=== PATIENT | female | born 1985 | race Caucasian/White ===

== ENCOUNTER → 2017-12-06 | Outpatient (REF) | payer BC ==
[2017-12-06 11:56] LABS: HEMATOCRIT 41.6 % (36.0-47.0); HEMOGLOBIN 13.4 g/dl (12.0-16.0); MEAN CORPUSCULAR HEMOGLOBIN 26.5 pg (27.0-33.0); MEAN CORPUSCULAR HGB CONC 32.2 g/dl (32.0-36.5); MEAN CORPUSCULAR VOLUME 82.4 fl (80.0-96.0); PLATELET COUNT, AUTOMATED 272 10^3/uL (150-450); RED BLOOD COUNT 5.05 10^6/uL (4.00-5.40)
[2017-12-06 12:14] LABS: ESTIMATED AVERAGE GLUCOSE 128 MG/DL (60-110); HEMOGLOBIN A1c 6.1 %
[2017-12-06 12:25] LABS: ALBUMIN 3.5 GM/DL (3.2-5.2); ALBUMIN/GLOBULIN RATIO 0.88 (1.00-1.93); ALKALINE PHOSPHATASE 50 U/L (45-117); ALT/SGPT 25 U/L (12-78); ANION GAP 8 MEQ/L (8-16); AST/SGOT 17 U/L (7-37); BILIRUBIN,TOTAL 0.5 MG/DL (0.2-1.0); BLOOD UREA NITROGEN 14 MG/DL (7-18); CALCIUM LEVEL 8.7 MG/DL (8.5-10.1); CARBON DIOXIDE LEVEL 28 MEQ/L (21-32); CHLORIDE LEVEL 104 MEQ/L (98-107); CHOLESTEROL LEVEL 250 MG/DL (<200); CHOLESTEROL RISK RATIO 4.098 (<5); CREATININE FOR GFR 0.56 MG/DL (0.55-1.30); GLOMERULAR FILTRATION RATE > 60.0 (>60); GLUCOSE, FASTING 88 MG/DL (70-100); HDL CHOLESTEROL 61 MG/DL (>40); LDL CHOLESTEROL 157.8 MG/DL (<100); NON-HDL-C 189 MG/DL; POTASSIUM SERUM 3.9 MEQ/L (3.5-5.1); SODIUM LEVEL 140 MEQ/L (136-145); TOTAL PROTEIN 7.5 GM/DL (6.4-8.2); TRIGLYCERIDES LEVEL 156 MG/DL (<150)
== END ==
LOC: M SFHCPLAZ 10:19
DX: Z00.00 Encounter for general adult medical examination without abnormal findings (principal)

== ENCOUNTER → 2019-03-09 | Outpatient (REF) | payer BC | LOC: M SFHCLERA 19:07 | PROVIDERS: ATTEND Nurse Practitioner Family | DX: J02.9 Acute pharyngitis, unspecified (principal) ==

== ENCOUNTER → 2020-05-29 | Outpatient (REF) | payer BC ==
[~2020-05-29] MED LIST: BUSP10TA PO; COLA1TAB PO; ESCI20TA PO; MELO7.5T35 PO; METF-838 PO; MULTCAP PO; NAPR220C23 PO; OMEP-221 PO; PERC5TAB12 PO; PREG25CA2 PO; TIZA4TAB4 PO; TOPI50TA9 PO; TRAM50TA2 PO
[2020-05-29 14:12] LABS: HEMOGLOBIN A1c 5.7 %
[2020-05-29 14:15] LABS: ALBUMIN 3.7 GM/DL (3.2-5.2); ALT/SGPT 20 U/L (12-78); BILIRUBIN,TOTAL 0.6 MG/DL (0.2-1.0); BLOOD UREA NITROGEN 17 MG/DL (7-18); CALCIUM LEVEL 9.3 MG/DL (8.5-10.1); CARBON DIOXIDE LEVEL 27 MEQ/L (21-32); CHLORIDE LEVEL 107 MEQ/L (98-107); CREATININE FOR GFR 0.79 MG/DL (0.55-1.30); GLOMERULAR FILTRATION RATE > 60.0 (>60); GLUCOSE, FASTING 84 MG/DL (70-100); POTASSIUM SERUM 4.7 MEQ/L (3.5-5.1); SODIUM LEVEL 140 MEQ/L (136-145); TOTAL PROTEIN 7.6 GM/DL (6.4-8.2)
== END ==
LOC: M SFHCPLAZ 11:57
PROVIDERS: ATTEND Nurse Practitioner Adult Health
DX: E74.39 Other disorders of intestinal carbohydrate absorption (principal); F41.9 Anxiety disorder, unspecified

== ENCOUNTER → 2020-07-05 | Outpatient (CLI) | payer BC | LOC: M LABSMTC 10:07 | PROVIDERS: ATTEND Anesthesiology | DX: Z01.818 Encounter for other preprocedural examination (principal); Z11.59 Encounter for screening for other viral diseases | CPT/HCPCS: C9803; U0003 ==

== ENCOUNTER → 2020-07-09 | Outpatient (CLI) | payer BC ==
[2020-07-09 10:17] LABS: BLOOD UREA NITROGEN 18 MG/DL (7-18); CALCIUM LEVEL 8.9 MG/DL (8.5-10.1); CARBON DIOXIDE LEVEL 22 MEQ/L (21-32); CHLORIDE LEVEL 110 MEQ/L (98-107); CREATININE FOR GFR 0.71 MG/DL (0.55-1.30); GLOMERULAR FILTRATION RATE > 60.0 (>60); GLUCOSE, FASTING 99 MG/DL (70-100); POTASSIUM SERUM 4.3 MEQ/L (3.5-5.1); SODIUM LEVEL 141 MEQ/L (136-145)
--- NOTE | 2020-07-30 10:53 | ECGEPIP ---
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
== END ==
LOC: M LAB 09:09
PROVIDERS: ATTEND Anesthesiology
DX: Z01.818 Encounter for other preprocedural examination (principal)

== ENCOUNTER 2020-07-10 06:29 | Day surgery (SDC) | payer BC ==
[2020-07-10] VITALS (7 sets, daily range): BP systolic 102–112; BP diastolic 62–67
[~2020-07-10] VITALS: Ht 162.6 cm; Wt 97.5 kg
[~2020-07-10 06:29] MED LIST changes: -COLA1TAB PO; -PERC5TAB12 PO; -TRAM50TA2 PO
[2020-07-10] MEDS ORDERED: CelecoXIB 400 MG CAP PO ONE (06:45)
[2020-07-10] MEDS ORDERED: GABAPENTIN 300 MG CAP PO ONE (06:45)
[2020-07-10] MEDS ORDERED: PERCOCET 5MG/325MG TAB PO ONE (06:45)
[2020-07-10] MEDS ORDERED: ceFAZolin SOD 2 GM in IV 1 EA IV ONE ×2 (06:45→12:00)
[2020-07-10] MEDS ORDERED: LR 1,000 ML IV SCH ×3 (06:45→10:30)
[2020-07-10] MEDS ORDERED: propofoL 200 MG/20 ML VIAL As Ordered ONE (07:14)
[2020-07-10] MEDS ORDERED: LIDOCAINE 2% 100MG/5ML SDV (FOR ANES.) As Ordered ONE (07:14)
[2020-07-10] MEDS ORDERED: MIDAZOLAM INJ 2MG/2ML VIAL (J2250 PER 1MG) As Ordered ONE (07:14)
[2020-07-10] MEDS ORDERED: fentaNYL 100 MCG/2 ML INJECTION (J3010) As Ordered ONE ×2 (07:14→08:10)
[2020-07-10] MEDS ORDERED: dexameTHASONE 4 MG/ML 1ML VIAL (J1100 PER 1MG) As Ordered ONE (07:15)
[2020-07-10] MEDS ORDERED: ONDANSETRON 4MG/2ML VIAL As Ordered ONE (07:15)
[2020-07-10] MEDS ORDERED: ROCURONIUM BROMIDE 50 MG/5 ML VIAL As Ordered ONE ×2 (07:17→08:16)
[2020-07-10] MEDS ORDERED: LACRILUBE (AKWA TEARS) OPHTH OINT 3.5 GM As Ordered ONE (07:21)
[2020-07-10] MEDS ORDERED: BUPIVACAINE/EPIN 0.25% 30 ML VIAL As Ordered ONE (07:45)
[2020-07-10] MEDS ORDERED: BUPIVACAINE HCL 0.25% 10ML VIAL As Ordered ONE (07:45)
[2020-07-10] MEDS ORDERED: THROMBIN SOLN 20,000 UNITS KIT As Ordered ONE (07:45)
[2020-07-10] MEDS ORDERED: TRANEXAMIC ACID 100 MG/ML 10ML VIAL As Ordered ONE (07:45)
[2020-07-10] MEDS ORDERED: BACITRACIN PWD 50,000 UNITS VIAL As Ordered ONE (07:46)
[2020-07-10] MEDS ORDERED: BUPIVACAINE LIPOSOME/PF 1.3% 20ML VIAL (13.3MG/ML)(EXPAREL)(C9290 PER1MG) As Ordered ONE (07:46)
[2020-07-10] MEDS ORDERED: EPINEPHrine INJ 1 MG/ML 1ML AMP As Ordered ONE (07:46)
[2020-07-10] MEDS ORDERED: SUGAMMADEX SODIUM 500 MG/5 ML VIAL (BRIDION) As Ordered ONE (08:12)
[2020-07-10] MEDS ORDERED: KETAMINE HCL 200 MG/20 ML VIAL As Ordered ONE (09:00)
[2020-07-10] MEDS: METAMUCIL (PSYLLIUM) PACKET PO SCH (09:00)
[2020-07-10] MEDS ORDERED: GLYCOPYRROLATE INJ 0.2 MG/ML 2 ML VIAL As Ordered ONE (09:22)
[2020-07-10] MEDS ORDERED: ALBUTEROL 6.7GM INHALER **FOR ANES. CART/OMNICELL ONLY As Ordered ONE (09:42)
[2020-07-10] MEDS ORDERED: MORPHINE 4 MG/ML 1ML VIAL/SYRINGE (J2270) IV PRN (10:30)
[2020-07-10] MEDS ORDERED: fentaNYL 100 MCG/2 ML INJECTION (J3010) IV PRN (10:30)
[2020-07-10] MEDS ORDERED: METOCLOPRAMIDE INJ 10MG/2ML VIAL (J2765 PER 1) IV PRN (10:30)
[2020-07-10] MEDS ORDERED: ONDANSETRON 4MG/2ML VIAL IV PRN (10:30)
[2020-07-10] MEDS ORDERED: PERCOCET 5MG/325MG TAB PO PRN (10:30)
[2020-07-10] MEDS: PERCOCET 5MG/325MG TAB PO PRN ×3 (10:38→18:43)
[2020-07-10] MEDS ORDERED: PROMETHAZINE INJ 25 MG/ML VIAL (J2550) IV PRN (10:45)
[2020-07-11] MEDS: PERCOCET 5MG/325MG TAB PO PRN ×4 (00:03→11:44)
[2020-07-11 00:30] VITALS: BP 111/68
[2020-07-11 04:30] VITALS: BP 121/64
[2020-07-11] MEDS ORDERED: PERC5TAB12 PO (06:20)
[2020-07-11] MEDS: METAMUCIL (PSYLLIUM) PACKET PO SCH (08:10)
[2020-07-11] MEDS ORDERED: traMADol 50 MG TAB As Ordered ONE (08:14)
[2020-07-11] MEDS ORDERED: KETOROLAC 30 MG/ML 1ML VIAL IV ONE (08:15)
[2020-07-11] MEDS ORDERED: traMADol 50 MG TAB PO ONE (08:15)
[2020-07-11] MEDS ORDERED: TRAM50TA2 PO (08:23)
[2020-07-11] MEDS ORDERED: COLA1TAB PO (08:23)
[2020-07-11] MEDS ORDERED: CelecoXIB (CeleBREX) 100 MG CAP PO ONE (09:00)
[2020-07-11 10:00] VITALS: BP 119/66
[2020-07-11] MEDS ORDERED: tiZANidine 4 MG TAB PO ONE (12:00)
[2020-07-11] MEDS ORDERED: TOPIRAMATE (TopAMAX) 25 MG TAB PO ONE (12:00)
--- NOTE | 2020-08-01 15:16 | RO ---
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 POSTOPERATIVE DIAGNOSIS: Left paracentral disk herniation at L3-4, transitional lumbosacral anatomy. PROCEDURE: Left L3-4 laminectomy with microdiskectomy. SURGEON: Donavon Blair MD ASSISSTING: LAZARUS Ramirez ANESTHESIA: General. ESTIMATED BLOOD LOSS: Less than 60 ml REPLACEMENT: Crystalloid. COMPLICATIONS: None. 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 MRI evidence of disk herniation left L3-4. Again because of the transitional anatomy, this would typically appear to be at the 4 or 5 level functionally, this appears to be what normally would be considered 4-5. Consent reviewed in detail including a victorino discussion of the pathology involved, the procedure proposed, alternatives including doing nothing, and this including but not limited to pain, failure, incomplete relief, need more surgery and other issues. The patient agrees to proceed. OPERATIVE COURSE: Identified in the holding area, site and side verified, brought to the operating room, anesthesia was administered. She was positioned on the Alan frame for exposure of the lumbar spine, prepped and draped in the usual fashion. Next, incision was outlined with a marking pen, infiltrated with 4% Marcaine with epinephrine. Incision was made with a 10 blade knife developed down through skin, subcuticular tissues. The dissection continued to the left of the midline to the paraspinal muscles and posterior fascia. The posterior fascia was reflected off the spinous process of 3 and 4. Dissection continued down to the 3-4 interspace. A divot was drilled at the 3-4 interspace and a across table lateral was taken to verify location; again, considering the patient only has one discrete vertebrae. Next, once we verified level, the Loupe magnification was removed. The operating microscope was brought in, sterilely draped. We utilized the high-speed bur to implement a left unilateral laminectomy at L3-4. Mr. Mcmanus looked through oculars on the right; I through oculars on the left. I utilized the bur to dissect to the bare area of 3 and inferiorly into top of 4, elevated using a curve curette, removed ligamentum flavum and exposed the thecal sac. Bipolar cautery was utilized for hemostasis. I sweep the nerve root traversing medially, exposing the disk bulge, which seemed to be extruded, but subligamentous. I opened the posterior and longitudinal ligament, removed this piecemeal fashion with just the pituitaries. Bipolar cautery again utilized for hemostasis. We inspected. No additional free material was appreciated. Irrigation was accomplished. The wound was closed with interrupted stitch and a Prineo dressing. The patient was moved to the hospital bed, extubated, moved to the recovery room in good condition. For further details, please refer to medical record. MTDD
--- NOTE | 2020-08-07 11:05 | REP ---
FLUORO-GUIDED IMAGING Intraoperative fluoro stable lateral views of the lumbar spine with final image dated 07/10/2020 at 0836 am, demonstrating probes via posterior approach at the L3-4 and L4-5 levels. MTDD
== END 2020-07-11 14:05 | disposition home or self-care (01) ==
LOC: M SDC 06:29 → M MS5PR 11:55 → M SDC 07-11 14:05
PROVIDERS: ATTEND Orthopaedic Surgery
DX: M51.87 Other intervertebral disc disorders, lumbosacral region (principal); Z91.041 Radiographic dye allergy status; Z88.5 Allergy status to narcotic agent; Z79.899 Other long term (current) drug therapy; Z79.84 Long term (current) use of oral hypoglycemic drugs; E11.9 Type 2 diabetes mellitus without complications; K21.9 Gastro-esophageal reflux disease without esophagitis
CPT/HCPCS: 36415; 63030; 76000; 81025; 86850; 86900; 86901; 88304; 96365; C9290; J0690; J1100; J2250; J2405; J3010

== ENCOUNTER → 2021-05-16 | Outpatient (CLI) | payer BC ==
[~2021-05-16] MED LIST changes: +COLA1TAB PO; -ESCI20TA PO; +ESCI20TA16 PO; -OMEP-221 PO; +OMEP40CA5 PO; +PERC5TAB12 PO; +TIZA10TA PO; -TIZA4TAB4 PO; +TRAM50TA2 PO
[2021-05-16 11:59] LABS: ALBUMIN 3.8 GM/DL (3.2-5.2); ALT/SGPT 28 U/L (12-78); BILIRUBIN,TOTAL 0.3 MG/DL (0.2-1.0); BLOOD UREA NITROGEN 11 MG/DL (7-18); CALCIUM LEVEL 8.9 MG/DL (8.5-10.1); CARBON DIOXIDE LEVEL 27 MEQ/L (21-32); CHLORIDE LEVEL 107 MEQ/L (98-107); CREATININE FOR GFR 0.66 MG/DL (0.55-1.30); GLOMERULAR FILTRATION RATE > 60.0 (>60); GLUCOSE, FASTING 107 MG/DL (70-100); POTASSIUM SERUM 4.6 MEQ/L (3.5-5.1); SODIUM LEVEL 138 MEQ/L (136-145); THYROID STIMULATING HORMONE 0.298 uIU/ML (0.358-3.740); TOTAL PROTEIN 7.6 GM/DL (6.4-8.2)
== END ==
LOC: M PLALAB 08:53
PROVIDERS: ATTEND Nurse Practitioner Adult Health
DX: Z13.21 Encounter for screening for nutritional disorder (principal); E74.39 Other disorders of intestinal carbohydrate absorption; Z13.29 Encounter for screening for other suspected endocrine disorder

== ENCOUNTER → 2021-11-11 | Outpatient (REF) | payer BC ==
[~2021-11-11] MED LIST changes: +OMEP-221 PO; -OMEP40CA5 PO; -TIZA10TA PO; +TIZA4TAB4 PO
[2021-11-11 13:10] LABS: APPEARANCE, URINE CLEAR (CLEAR); BACTERIA, URINE AUTO 1+ (NEGATIVE); BILIRUBIN, URINE AUTO NEGATIVE (NEGATIVE); BLOOD, URINE BLOOD NEGATIVE (NEGATIVE); COLOR, URINE STRAW (YELLOW); GLUCOSE, URINE (UA) AUTO NEGATIVE (NEGATIVE); KETONE, URINE AUTO NEGATIVE (NEGATIVE); LEUKOCYTE ESTERASE, URINE AUTO 2+ (NEGATIVE); MUCUS, URINE SMALL (NEGATIVE); NITRITE, URINE AUTO NEGATIVE (NEGATIVE); PROTEIN, URINE AUTO NEGATIVE (NEGATIVE); RBC, URINE AUTO 1 /HPF (0-3); SPECIFIC GRAVITY URINE AUTO 1.008 (1.002-1.035); SQUAMOUS EPITHELIAL CELL UR AU 3 /HPF (0-6); UROBILINOGEN, URINE AUTO 0.2 mg/dL (0.0-2.0); WBC, URINE AUTO 11 /HPF (0-3)
== END ==
LOC: M SFHCPLAZ 12:47
PROVIDERS: ATTEND Nurse Practitioner Adult Health
DX: R30.0 Dysuria (principal)

== ENCOUNTER → 2022-06-12 | Outpatient (CLI) | payer BC ==
[~2022-06-12] MED LIST changes: -OMEP-221 PO; +OMEP40CA5 PO; +TIZA10TA PO; -TIZA4TAB4 PO
[2022-06-12 12:04] LABS: HEMOGLOBIN A1c 6.1 %
[2022-06-12 12:51] LABS: ALBUMIN 3.4 GM/DL (3.2-5.2); ALT/SGPT 26 U/L (12-78); BILIRUBIN,TOTAL 0.4 MG/DL (0.2-1.0); BLOOD UREA NITROGEN 11 MG/DL (7-18); CARBON DIOXIDE LEVEL 29 MEQ/L (21-32); CHLORIDE LEVEL 106 MEQ/L (98-107); CREATININE FOR GFR 0.68 MG/DL (0.55-1.30); GLOMERULAR FILTRATION RATE > 60.0 (>60); GLUCOSE, FASTING 101 MG/DL (70-100); POTASSIUM SERUM 4.2 MEQ/L (3.5-5.1); SODIUM LEVEL 138 MEQ/L (136-145); TOTAL PROTEIN 7.6 GM/DL (6.4-8.2)
[2022-06-12 13:14] LABS: TOTAL 25(OH) VITAMIN D 19.6 NG/ML (30.0-100.0)
== END ==
LOC: M PLALAB 08:32
PROVIDERS: ATTEND Nurse Practitioner Adult Health
DX: Z00.00 Encounter for general adult medical examination without abnormal findings (principal); E74.39 Other disorders of intestinal carbohydrate absorption; Z13.21 Encounter for screening for nutritional disorder

== ENCOUNTER → 2023-06-02 | Outpatient (CLI) | payer BC ==
[~2023-06-02] MED LIST changes: +TOPI-254 PO; -TOPI50TA9 PO
[2023-06-02 14:51] LABS: ALBUMIN 3.5 G/DL (3.2-5.2); ALKALINE PHOSPHATASE 48 U/L (46-116); ALT/SGPT 19 U/L (7.0-40); AST/SGOT 10 U/L (<34); BILIRUBIN,TOTAL 0.4 MG/DL (0.3-1.2); BLOOD UREA NITROGEN 12 MG/DL (9-23); CALCIUM LEVEL 9.2 MG/DL (8.5-10.1); CARBON DIOXIDE LEVEL 28 MMOL/L (20-31); CHLORIDE LEVEL 105 MMOL/L (98-107); GLOMERULAR FILTRATION RATE > 60.0 (>60); GLUCOSE, FASTING 96 MG/DL (60-100); POTASSIUM SERUM 4.9 MMOL/L (3.5-5.1); SODIUM LEVEL 140 MMOL/L (136-145); TOTAL PROTEIN 6.8 G/DL (5.7-8.2); VITAMIN B12 LEVEL 405 PG/ML (211-911)
[2023-06-02 14:52] LABS: THYROID STIMULATING HORMONE 0.477 uIU/ML (0.55-4.78); TOTAL 25(OH) VITAMIN D 28.3 NG/ML (20.0-100.0)
== END ==
LOC: M PLALAB 10:23
PROVIDERS: ATTEND Nurse Practitioner Adult Health
DX: Z00.00 Encounter for general adult medical examination without abnormal findings (principal); E74.39 Other disorders of intestinal carbohydrate absorption; Z13.21 Encounter for screening for nutritional disorder; Z13.29 Encounter for screening for other suspected endocrine disorder

== ENCOUNTER → 2024-04-05 | Outpatient (REF) | payer BC ==
[~2024-04-05] MED LIST changes: -PREG25CA2 PO; +PREG25CA3 PO; +TOPI-21 PO; -TOPI-254 PO
== END ==
LOC: M SFHCPLAZ 16:59
PROVIDERS: ATTEND Physician Assistant Medical
DX: J06.9 Acute upper respiratory infection, unspecified (principal)

== ENCOUNTER → 2025-07-04 | Outpatient (CLI) | payer OTHER ==
[2025-07-04 17:00] LABS: PLATELET COUNT, AUTOMATED 287 10^3/uL (150-450)
[2025-07-04 17:17] LABS: ESTIMATED AVERAGE GLUCOSE 114.0 MG/DL (60-110)
[2025-07-04 17:26] LABS: ALT/SGPT 25 U/L (7.0-40); AST/SGOT 18 U/L (<34); CALCIUM LEVEL 9.3 MG/DL (8.5-10.1); CARBON DIOXIDE LEVEL 27 MMOL/L (20-31); CHLORIDE LEVEL 104 MMOL/L (98-107); CREATININE FOR GFR 0.68 MG/DL (0.55-1.30); GLOMERULAR FILTRATION RATE > 90.0 (>58); POTASSIUM SERUM 4.6 MMOL/L (3.5-5.1); SODIUM LEVEL 140 MMOL/L (136-145)
[2025-07-04 17:28] LABS: FREE T4 1.06 NG/DL (0.89-1.76)
[2025-07-04 17:29] LABS: VITAMIN B12 LEVEL 520 PG/ML (211-911)
== END ==
LOC: M PLALAB 16:09
PROVIDERS: ATTEND Nurse Practitioner Adult Health
DX: Z00.00 Encounter for general adult medical examination without abnormal findings (principal); E74.39 Other disorders of intestinal carbohydrate absorption; R53.83 Other fatigue

== ENCOUNTER 2025-08-03 13:23 | Outpatient (CLI) | payer OTHER ==
[~2025-08-03] VITALS: Ht 162.6 cm; Wt 100.0 kg
[~2025-08-03 13:23] MED LIST changes: +ALBUTEROL SULFATE 2.5 MG/0.5 ML INH CONCENTRATE NEB SOLN INH PRN; +EPINEPHrine INJ 1 MG/ML 1ML AMP IM PRN; +diphenhydrAMINE 50 MG/ML VIAL IV PRN
[2025-08-03 13:40] VITALS: BP 130/85; O2SAT 98
[2025-08-03] MEDS: IRON SUCROSE 300 MG in NS 250 ML OVER 90 MIN. IV ONE (14:17)
[2025-08-03] MEDS ORDERED: IRON65TA2 PO (14:25)
[2025-08-03 16:02] VITALS: BP 123/71; O2SAT 98
[2025-08-03 17:15] VITALS: BP 128/67; O2SAT 99
== END 2025-08-03 17:20 | disposition home or self-care (01) ==
LOC: M INFU 13:23
PROVIDERS: ATTEND Nurse Practitioner Adult Health
DX: D50.9 Iron deficiency anemia, unspecified (principal); Z88.5 Allergy status to narcotic agent; Z91.041 Radiographic dye allergy status
CPT/HCPCS: 96365; 96366; 96375; J1756; J2919

== ENCOUNTER 2025-08-10 13:03 | Outpatient (CLI) | payer OTHER ==
[~2025-08-10] VITALS: Ht 157.5 cm; Wt 100.0 kg
[~2025-08-10 13:03] MED LIST changes: +IRON65TA2 PO
[2025-08-10 14:00] VITALS: BP 126/62; O2SAT 99
[2025-08-10] MEDS: IRON SUCROSE 300 MG in NS 250 ML IV ONE (14:03)
[2025-08-10 15:42] VITALS: BP 129/74; O2SAT 99
[2025-08-10 16:12] VITALS: BP 125/65; O2SAT 97
== END 2025-08-10 16:15 ==
LOC: M INFU 13:03
PROVIDERS: ATTEND Nurse Practitioner Adult Health
DX: D50.9 Iron deficiency anemia, unspecified (principal); Z88.5 Allergy status to narcotic agent; Z91.041 Radiographic dye allergy status
CPT/HCPCS: 96365; 96366; J1756

== ENCOUNTER 2025-08-17 13:11 | Outpatient (CLI) | payer OTHER ==
[~2025-08-17] VITALS: Ht 162.6 cm; Wt 100.0 kg
[2025-08-17 14:10] VITALS: BP 124/70; O2SAT 99
[2025-08-17] MEDS: IRON SUCROSE 300 MG in NS 250 ML OVER 90 MIN. IV ONE (15:01)
[2025-08-17 16:40] VITALS: BP 142/77; O2SAT 99
== END 2025-08-17 16:40 ==
LOC: M INFU 13:11
PROVIDERS: ATTEND Nurse Practitioner Adult Health
DX: D50.9 Iron deficiency anemia, unspecified (principal); Z88.5 Allergy status to narcotic agent; Z91.041 Radiographic dye allergy status
CPT/HCPCS: 96365; 96375; J1756; J2919

== ENCOUNTER 2025-08-24 13:17 | Outpatient (CLI) | payer OTHER ==
[~2025-08-24] VITALS: Ht 162.6 cm; Wt 99.5 kg
[2025-08-24 13:50] VITALS: BP 127/62; O2SAT 98
[2025-08-24] MEDS: IRON SUCROSE 300 MG in NS 250 ML IV ONE (14:03)
[2025-08-24 15:46] VITALS: BP 124/67; O2SAT 98
== END 2025-08-24 15:50 | disposition home or self-care (01) ==
LOC: M INFU 13:17
PROVIDERS: ATTEND Nurse Practitioner Adult Health
DX: D50.9 Iron deficiency anemia, unspecified (principal); Z88.5 Allergy status to narcotic agent; Z91.041 Radiographic dye allergy status
CPT/HCPCS: 96365; 96366; 96375; J1756; J2919

== ENCOUNTER → 2025-10-19 | Outpatient (CLI) | payer OTHER ==
[~2025-10-19] MED LIST changes: -ALBUTEROL SULFATE 2.5 MG/0.5 ML INH CONCENTRATE NEB SOLN INH PRN; -EPINEPHrine INJ 1 MG/ML 1ML AMP IM PRN; -diphenhydrAMINE 50 MG/ML VIAL IV PRN
[2025-10-19 15:45] LABS: PLATELET COUNT, AUTOMATED 244 10^3/uL (150-450)
== END ==
LOC: M PLALAB 12:48
PROVIDERS: ATTEND Nurse Practitioner Adult Health
DX: R53.83 Other fatigue (principal)